=== PATIENT | male | born 1985 | race Hispanic/Latino ===

== ENCOUNTER 2017-11-07 16:52 | Emergency (ER) | payer OTHER ==
[2017-11-07] MEDS ORDERED: KETOROLAC TROMETHAMINE 30MG/ML ONE (18:39)
[2017-11-07] MEDS ORDERED: DiphenhydrAMINE HCL 50 MG/ML VIAL ONE (18:39)
== END 2017-11-07 18:47 | disposition home or self-care (01) ==
LOC: EDH 16:52
DX: R51 Headache (principal)
CPT/HCPCS: 96372 ×2; 99284; J1200; J1885